=== PATIENT | female | born 1955 | race Caucasian/White ===

== ENCOUNTER 2017-07-20 19:48 | Emergency (ER) | payer OTHER ==
[2017-07-20 20:15] VITALS: TEMP 97.9; BMI 38.4
--- NOTE | 2017-07-20 20:16 | PDOC ---
Rapid Medical Evaluation Chief Complaint: Blood Pressure Problem Time Seen by Provider: 07/20/17 20:13 Medical Evaluation: Allergies Allergy/AdvReac Type Severity Reaction Status Date / Time No Known Allergies Allergy Verified 07/20/17 20:12 07/20/17 20:13 I have performed a brief in-person evaluation of this patient. The patient presents with a chief complaint of: Hypertension Pertinent physical exam findings: B/P 202/89 I have ordered the following: cbc, cmp, trop, tsh, ekg, chest x-ray, ua, urine c &s. The patient will proceed to the ED for further evaluation
[2017-07-20 21:01] LABS: BASOPHIL 0.6 % (0-2.0); MCH 28.4 pg (25.7-33.7); MCHC 33.6 g/dl (32.0-36.0); MEAN CELL VOLUME 84.7 fl (80-96); MEAN PLT VOLUME 8.9 fl (7.5-11.1); NEUTROPHILS 46.8 % (42.8-82.8); PLATELET COUNT 172 K/MM3 (134-434); RDW 14.6 % (11.6-15.6); WHITE BLOOD COUNT 4.5 K/mm3 (4.0-10.0)
[2017-07-20 21:02] LABS: URINE APPEARANCE CLEAR; URINE BILIRUBIN NEGATIVE (NEGATIVE); URINE BLOOD NEGATIVE (NEGATIVE); URINE COLOR STRAW; URINE GLUCOSE (UA) NEGATIVE (NEGATIVE); URINE KETONE NEGATIVE (NEGATIVE); URINE NITRITE NEGATIVE (NEGATIVE); URINE PROTEIN 2+ (NEGATIVE); URINE UROBILINOGEN NEGATIVE mg/dL (0.2-1.0)
[2017-07-20 21:03] LABS: URINE BACTERIA RARE /hpf (NONE SEEN); URINE RBC 1 /hpf (0-3); URINE WBC 2 /hpf (3-5)
[2017-07-20 21:27] LABS: ALBUMIN 3.6 g/dl (3.4-5.0); ANION GAP 8 (8-16); BILIRUBIN,TOTAL 0.2 mg/dL (0.2-1.0); CALCIUM 8.6 mg/dL (8.5-10.1); CO2 25 mmol/L (21-32); GLUCOSE,RANDOM 72 mg/dL (74-106); SGOT/AST 19 U/L (15-37); SGPT/ALT 35 U/L (12-78); TOT PROT 7.4 g/dl (6.4-8.2)
[2017-07-20 21:35] LABS: ALK PHOS 110 U/L (45-117); CPK 84 IU/L (26-192); THYROID STIMULATING HORMONE 1.35 uIU/ml (0.358-3.74); TROPONIN I 0.04 ng/ml (0.00-0.05)
--- NOTE | 2017-07-20 21:44 | PDOC ---
History of Present Illness - History of Present Illness Initial Comments: 07/20/17 23:14 Patient is a 62 year old female with a significant past medical history who presents to the ED with complaints of elevated Blood pressure that began today. As per patient's family, patient has been experiencing dizziness and nausea stating it is because of her high blood pressure. Family states patient has been experiencing low blood sugar secondary to high blood pressure. Patient family states patient has been compliant with all medications today but states she has not eaten or drunk anything all day. Family states patient underwent laser eye surgery earlier today. Patient family feels that patients lowered blood sugar is due to her elevated BP. Patient states she has not followed up with PCP for personal reasons . Patient finger stick currently 64. Denies chest pain, SOB. Denies fever, chills. Denies contact with sick individuals, Out of state travel. Denies any other symptoms. Allergies: None Social history: Lives with family. Denies Surgical history: Laser eye surgery PMD: None <Phil Reyes - Last Filed: 07/20/17 23:14> - General History Source: Patient <Lex Rivera - Last Filed: 07/21/17 06:37> - General Chief Complaint: Blood Pressure Problem Stated Complaint: BLOOD PRESSURE Time Seen by Provider: 07/20/17 21:36 Past History <Phil Reyes - Last Filed: 07/20/17 23:14> - Past Medical History COPD: No Diabetes: Yes HTN: Yes Hypercholesterolemia: Yes - Suicide/Smoking/Psychosocial Hx Smoking History: Never smoked Have you smoked in the past 12 months: No Information on smoking cessation initiated: No Hx Alcohol Use: No Drug/Substance Use Hx: No Substance Use Type: None <Lex Rivera - Last Filed: 07/21/17 06:37> - Past Medical History Allergies/Adverse Reactions: Allergies Allergy/AdvReac Type Severity Reaction Status Date / Time No Known Allergies Allergy Verified 07/20/17 20:12 Home Medications: Ambulatory Orders Aspirin [ASA -] 81 mg PO DAILY 07/20/17 Atenolol [Tenormin -] 50 mg PO DAILY 07/20/17 Furosemide [Lasix -] 40 mg PO DAILY 07/20/17 Insulin (Novolog) [Novolog Flexpen -] 07/20/17 Insulin Glargine,Hum.rec.anlog [Rosa Gordon PEN -] 07/20/17 Motrin - 200 mg PO PRN 07/20/17 Simvastatin 40 mg PO HS 07/20/17 Review of Systems - Review of Systems Able to Perform ROS?: Yes Comments:: 07/20/17 23:14 CONSTITUTIONAL: Absent: fever, no chills, no fatigue EYES: Absent: visual changes ENT: Absent: ear pain, no sore throat CARDIOVASCULAR: Absent: chest pain, no palpitations RESPIRATORY: Absent: cough, no SOB GI: +Nausea. Absent: abdominal pain, no vomiting, no constipation, no diarrhea GENITOURINARY: Absent: dysuria, no frequency, no hematuria MUSCULOSKELETAL: Absent: back pain, no arthralgia, no myalgia NEUROLOGIC: +Dizziness. SKIN: Absent: rash All Other Systems: Reviewed and Negative <Phil Reyes - Last Filed: 07/20/17 23:14> *Physical Exam - Vital Signs Last Vital Signs Temp Pulse Resp BP Pulse Ox 97.9 F 68 20 202/89 100 07/20/17 20:12 07/20/17 20:12 07/20/17 20:12 07/20/17 20:12 07/20/17 20:12 - Physical Exam Comments: 07/20/17 23:14 GENERAL: Well-appearing, well-nourished. No apparent distress. HEENT: Normocephalic, atraumatic. PERRL, EOM intact. CARDIOVASCULAR: Normal S1, S2. Regular rate and rhythm. PULMONARY: Clear to auscultation bilaterally. ABDOMEN: Soft, non-distended, non-tender. EXTREMITIES: Normal ROM in all four extremities. No gross deformities. SKIN: Warm, dry. No rash NEUROLOGICAL: No focal neurological deficits. <Phil Reyes - Last Filed: 07/20/17 23:14> - Vital Signs Last Vital Signs Temp Pulse Resp BP Pulse Ox 97.9 F 68 20 202/89 100 07/20/17 20:12 07/20/17 20:12 07/20/17 20:12 07/20/17 20:12 07/20/17 20:12 <Lex Rivera - Last Filed: 07/21/17 06:37> ED Treatment Course - LABORATORY CBC & Chemistry Diagram: 07/20/17 20:50 07/20/17 20:50 - ADDITIONAL ORDERS Additional order review: Laboratory Results 07/20/17 07/20/17 20:50 20:40 Sodium 139 Potassium 3.9 Chloride 106 Carbon Dioxide 25 Anion Gap 8 BUN 20 H Creatinine 1.0 Creat Clearance w eGFR 56.00 Random Glucose 72 L Calcium 8.6 Total Bilirubin 0.2 AST 19 ALT 35 Alkaline Phosphatase 110 Creatine Kinase 84 Troponin I 0.04 Total Protein 7.4 Albumin 3.6 TSH 1.35 Urine Color Straw Urine Appearance Clear Urine pH 6.0 Ur Specific [place] 1.004 Urine Protein 2+ H Urine Glucose (UA) Negative Urine Ketones Negative Urine Blood Negative Urine Nitrite Negative Urine Bilirubin Negative Urine Urobilinogen Negative Urine WBC (Auto) 2 Urine RBC (Auto) 1 Ur Epithelial Cells Rare Urine Bacteria Rare 07/20/17 20:50 RBC 3.80 MCV 84.7 MCHC 33.6 RDW 14.6 MPV 8.9 Neutrophils % 46.8 Lymphocytes % 42.2 H Monocytes % 9.4 Eosinophils % 1.0 Basophils % 0.6 <Phil Reyes - Last Filed: 07/20/17 23:14> - LABORATORY CBC & Chemistry Diagram: 07/20/17 20:50 07/20/17 20:50 - ADDITIONAL ORDERS Additional order review: Laboratory Results 07/20/17 20:40 Urine Color Straw Urine Appearance Clear Urine pH 6.0 Ur Specific [place] 1.004 Urine Protein 2+ H Urine Glucose (UA) Negative Urine Ketones Negative Urine Blood Negative Urine Nitrite Negative Urine Bilirubin Negative Urine Urobilinogen Negative Urine WBC (Auto) 2 Urine RBC (Auto) 1 Ur Epithelial Cells Rare Urine Bacteria Rare 07/20/17 20:50 RBC 3.80 MCV 84.7 MCHC 33.6 RDW 14.6 MPV 8.9 Neutrophils % 46.8 Lymphocytes % 42.2 H Monocytes % 9.4 Eosinophils % 1.0 Basophils % 0.6 <Lex Rivera - Last Filed: 07/21/17 06:37> Medical Decision Making - Medical Decision Making 07/21/17 01:46 blood glucose 246 after a liter for D5 1/2NS. BP is now 07/21/17 06:35 Dr. Rivera: The scribe's documentation has been prepared under my direction and personally reviewed by me in its entirery. I confirm that the note above accurately reflects all work, treatment, procedures, and medical decision making performed by me. glucose is now in the 300's pt will check sugar frequently and control the sugar with the insulin for 24 hours. Orals will be used starting Tuesday morning.. <Lex Rivera - Last Filed: 07/21/17 06:37> *DC/Admit/Observation/Transfer - Attestations Scribe Attestion: 07/20/17 23:15 Documentation prepared by Phil Reyes, acting as general medical practitioner for Lex Rivera MD/DO. <Phil Reyes - Last Filed: 07/20/17 23:14> - Discharge Dispostion Admit: No <Lex Rivera - Last Filed: 07/21/17 06:37> Diagnosis at time of Disposition: Hypoglycemia Diabetes Qualifiers: Diabetes mellitus type: type 1 - Discharge Dispostion Disposition: HOME Condition at time of disposition: Stable - Referrals Referrals: Kyle Loyd MD [Staff Physician] - Korin Farah MD [Staff Physician] - - Patient Instructions Printed Discharge Instructions: DI for Hypoglycemia Additional Instructions: Please don't any other oral medications for diabetes you usually take for 24 hours. Check sugar frequently and us insulin for those 24 hours. Start the oral medication on Tuesday morning. Return if any problems. Print Language: SPANISH
[2017-07-20] MEDS ORDERED: DEXTROSE 5%-0.45% SALINE 1,000 ML IV SCH (22:00)
[2017-07-21] MEDS ORDERED: HEMOQUE TEST 1 EACH EACH ONE (01:24)
[2017-07-21 03:12] VITALS: PULSE 68
[2017-07-21] MEDS ORDERED: DEXTROSE 5%-0.45% SALINE 1,000 ML IV SCH (04:30)
[2017-07-21 06:55] VITALS: BP 187/77
[2017-07-21 13:19] LABS: URINE LEUK ESTERASE TRACE (NEGATIVE)
== END 2017-07-21 06:55 | disposition home or self-care (01) ==
LOC: JER 19:48
DX: E11.649 Type 2 diabetes mellitus with hypoglycemia without coma (principal); Z79.4 Long term (current) use of insulin; I10 Essential (primary) hypertension; E78.00 Pure hypercholesterolemia, unspecified
CPT/HCPCS: 36415; 80053; 81003; 81015; 82550; 84443; 84484; 85025; 87086; 99281-25

== ENCOUNTER 2018-07-30 20:59 | Emergency (ER) | payer OTHER ==
[2018-07-30 21:03] VITALS: BMI 34.7
--- NOTE | 2018-07-30 21:16 | PDOC ---
History of Present Illness - General Chief Complaint: Blood Pressure Problem Stated Complaint: HIGH BLOOD PRESSURE Time Seen by Provider: 07/30/18 21:16 History Source: Patient, Family Exam Limitations: Language Barrier - History of Present Illness Initial Comments: 07/30/18 21:28 CC: "my blood pressure is high" 63 year old female with PMH HTN, DM, HLD presented to ED for HTN x3 days. Pt stated she has been taking her blood pressure medications as prescribed, but her blood pressure has been fluctuant between 190-200 systolic. She did not mention this to her sons until tonight. She admitted to headache. She denied chest pain, shortness of breath, lower extremity swelling, hematuria, blurry vision, dizziness, weakness, numbness. BP medications: Valsartan 160 mg daily HCTZ 12.5 mg daily Atenolol 50 mg daily Lasix 40 mg daily Past History - Past Medical History Allergies/Adverse Reactions: Allergies Allergy/AdvReac Type Severity Reaction Status Date / Time No Known Allergies Allergy Verified 07/30/18 21:03 Home Medications: Ambulatory Orders Aspirin [ASA -] 81 mg PO DAILY 07/20/17 Atenolol [Tenormin -] 50 mg PO DAILY 07/20/17 Furosemide [Lasix -] 40 mg PO DAILY 07/20/17 Simvastatin 40 mg PO HS 07/20/17 Ibuprofen [Advil -] 200 mg PO QID 07/30/18 Metformin HCl [Metformin HCl ER] 1,000 mg PO BID 07/30/18 Sitagliptin Phosphate [Januvia] 100 mg PO DAILY 07/30/18 Valsartan/Hydrochlorothiazide [Valsartan-Hctz 160-25 mg Tab] 1 each PO DAILY 05/09 COPD: No Diabetes: Yes HTN: Yes Hypercholesterolemia: Yes - Suicide/Smoking/Psychosocial Hx Smoking History: Never smoked Have you smoked in the past 12 months: No Information on smoking cessation initiated: No Hx Alcohol Use: No Drug/Substance Use Hx: No Substance Use Type: None Review of Systems - Review of Systems Able to Perform ROS?: Yes Comments:: 07/30/18 21:30 General: denied fever, chills, night sweats, generalized weakness. HEENT: denied sore throat, rhinorrhea, ear pain. Heart: denied chest pain, palpitations, syncope, lower extremity swelling, diaphoresis. Respiratory: denied shortness of breath, cough, sputum production, hemoptysis. Abdomen: denied abdominal pain, nausea, vomiting, diarrhea, constipation, blood in stool. : denied dysuria, increased urinary frequency, hematuria, urinary incontinence , flank pain. Back: denied back pain. Musculoskeletal: denied joint pain, muscle pain, joint swelling. Neurological: admitted to headache. denied dizziness, numbness, tingling, weakness. Skin: denied rash, laceration, abrasion. *Physical Exam - Vital Signs Last Vital Signs Temp Pulse Resp BP Pulse Ox 98.0 F 82 16 223/78 H 100 07/30/18 21:01 07/30/18 21:01 07/30/18 21:01 07/30/18 21:01 07/30/18 21:01 - Physical Exam Comments: 07/30/18 21:31 Constitutional: Well-nourished, Well-developed, appearing stated age. HEENT: head is normocephalic, atraumatic. EOMI. PERRLA. Neck: supple. Full ROM. Heart: regular rhythm. no murmurs, rubs or gallops. Lungs: clear to auscultation bilaterally. no crackles, rhonchi or wheezing. no stridor. Abdomen: soft, nontender. normal bowel sounds. no rebound, guarding, masses. Extremities: Peripheral pulses intact. No lower extremity edema. Neurological: Alert. Oriented x3. CN2-12 intact. 5/5 strength all extremities. Full sensation all extremities and bilateral face. Finger to nose normal. Psych: awake, alert, oriented x3. Follows commands. Answers questions appropriately. Moderate Sedation - Procedure Monitoring Vital Signs: Procedure Monitoring Vital Signs Temperature 98.0 F 07/30/18 21:01 Pulse Rate 82 07/30/18 21:01 Respiratory Rate 16 07/30/18 21:01 Blood Pressure 223/78 H 07/30/18 21:01 O2 Sat by Pulse Oximetry (%) 100 07/30/18 21:01 ED Treatment Course - LABORATORY CBC & Chemistry Diagram: 07/30/18 23:00 07/30/18 23:00 Medical Decision Making - Medical Decision Making 07/30/18 21:31 63 year old female with above PMH presented to ED for HTNx3 days associated with headache. Initial Vital Signs Temp Pulse Resp BP Pulse Ox 98.0 F 82 16 223/78 H 100 07/30/18 21:01 07/30/18 21:01 07/30/18 21:01 07/30/18 21:01 07/30/18 21:01 Afebrile. No tachycardia. No tachypnea. Hypertensive urgency. No hypoxia on room air. Labs ordered: CBC, CMP, cardiac enzymes, BNP, UA Imaging ordered: CXR, CT head Medications ordered: Tylenol 975 mg PO, Norvasc 5 mg EKG performed at 2156: rate 84, regular rhythm, left axis, normal intervals, QTc = 456, no acute ST changes. 07/30/18 22:33 Labs hemolyzed per RN January. Reordered. Pt in CT. 07/30/18 23:02 CT head report: no acute infarction. no hemorrhage. no mass lesion. no skull fracture. likely incidental coarse calcification is noted posteriorly near the posterior inferior aspect of the falx of questionable significance. CXR: no infiltrate. sharp costophrenic angle bilaterally. no pneumothorax. cardiomegaly. - Pending official read 07/30/18 23:07 CMP Sodium 137 mmol/L (136-145) 07/30/18 21:58 Potassium 4.1 mmol/L (3.5-5.1) 07/30/18 21:58 Chloride 100 mmol/L (98-107) 07/30/18 21:58 Carbon Dioxide 26 mmol/L (21-32) 07/30/18 21:58 Anion Gap 11 MMOL/L (8-16) 07/30/18 21:58 BUN 31 mg/dL (7-18) H 07/30/18 21:58 Creatinine 1.2 mg/dL (0.55-1.3) 07/30/18 21:58 Creat Clearance w eGFR 45.23 (>60) 07/30/18 21:58 Random Glucose 168 mg/dL (74-106) H 07/30/18 21:58 Calcium 8.8 mg/dL (8.5-10.1) 07/30/18 21:58 Magnesium 1.8 mg/dL (1.8-2.4) 07/30/18 21:58 Total Bilirubin 0.2 mg/dL (0.2-1) 07/30/18 21:58 AST 22 U/L (15-37) 07/30/18 21:58 ALT 26 U/L (13-61) 07/30/18 21:58 Alkaline Phosphatase 136 U/L (45-117) H 07/30/18 21:58 Creatine Kinase 99 IU/L (26-192) 07/30/18 21:58 Troponin I 0.02 ng/ml (0.00-0.05) 07/30/18 21:58 B-Natriuretic Peptide 158.84 pg/ml (5-125) H 07/30/18 21:58 Total Protein 7.6 g/dl (6.4-8.2) 07/30/18 21:58 Albumin 3.6 g/dl (3.4-5.0) 07/30/18 21:58 No electrolyte abnormalities. No HERMELINDA. BUN/Cr = 25 Cr 1.2, at baseline - Cr 1.0 07/20/17 ALP 136. 07/30/18 23:19 Pt now reported low back pain x1 year located to her coccyx. Pt and sons denied fall/injury. No point tenderness, rash or ulcer on examination. Family stated pt had XR performed within the year that was normal. No indication for imaging at this time. 07/30/18 23:42 Vital Signs Temperature 98.5 F 07/30/18 23:36 Pulse Rate 75 07/30/18 23:36 Respiratory Rate 16 07/30/18 21:01 Blood Pressure 191/87 H 07/30/18 23:36 O2 Sat by Pulse Oximetry (%) 99 07/30/18 23:36 BP mildly improved. HCTZ 12.5 ordered. CBC WBC 4.4 K/mm3 (4.0-10.0) 07/30/18 23:00 Corrected WBC (auto) Cancelled 07/30/18 21:58 RBC 3.36 M/mm3 (3.60-5.2) L 07/30/18 23:00 Hgb 9.9 GM/dL (10.7-15.3) L 07/30/18 23:00 Hct 28.3 % (32.4-45.2) L 07/30/18 23:00 MCV 84.4 fl (80-96) 07/30/18 23:00 MCH 29.5 pg (25.7-33.7) 07/30/18 23:00 MCHC 35.0 g/dl (32.0-36.0) 07/30/18 23:00 RDW 14.5 % (11.6-15.6) 07/30/18 23:00 Plt Count 188 K/MM3 (134-434) 07/30/18 23:00 MPV 8.8 fl (7.5-11.1) 07/30/18 23:00 Absolute Neuts (auto) 2.6 K/mm3 (1.5-8.0) 07/30/18 23:00 Neutrophils % 59.6 % (42.8-82.8) D 07/30/18 23:00 Lymphocytes % 30.1 % (8-40) D 07/30/18 23:00 Monocytes % 8.9 % (3.8-10.2) 07/30/18 23:00 Eosinophils % 0.9 % (0-4.5) 07/30/18 23:00 Basophils % 0.5 % (0-2.0) 07/30/18 23:00 Nucleated RBC % 0 % (0-0) 07/30/18 23:00 Platelet Estimate Cancelled 07/30/18 21:58 Platelet Comment Cancelled 07/30/18 21:58 Normocytic anemia. No leukocytosis. Urine Test Results Urine Color Colorless 07/30/18 22:05 Urine Appearance Clear 07/30/18 22:05 Urine pH 6.0 (5.0-8.0) 07/30/18 22:05 Ur Specific [place] 1.005 (1.010-1.035) L 07/30/18 22:05 Urine Protein 2+ (NEGATIVE) H 07/30/18 22:05 Urine Glucose (UA) Negative (NEGATIVE) 07/30/18 22:05 Urine Ketones Negative (NEGATIVE) 07/30/18 22:05 Urine Blood Negative (NEGATIVE) 07/30/18 22:05 Urine Nitrite Negative (NEGATIVE) 07/30/18 22:05 Urine Bilirubin Negative (<2.0 mg/dL) 07/30/18 22:05 Ur Leukocyte Esterase Trace (NEGATIVE) 07/30/18 22:05 Ur Epithelial Cells Rare /HPF (FEW) 07/30/18 22:05 Urine Bacteria Rare /hpf (NONE SEEN) 07/30/18 22:05 Protein in urine. - Similar to 07/20/17 Cr at baseline. Trace LE, WBC not >5. 07/30/18 23:45 Pt reassessed, stated headache improved from 02/28 to 08/31. Pt stated she only checks her blood pressure when she believes it is high, based on her symptoms like headache. Family at bedside stated they believe she lives in the 160s systolic range. At this time pt is believed to be safe for discharge. -Headache decreased -Negative CT head -BP trending down. -No gross focal neuro deficits. No chest pain. -Pt to be discharged home with family. -Pt and family informed of need for prompt PCP follow up by Tuesday or Tuesday for evaluation of BP medications. *DC/Admit/Observation/Transfer Diagnosis at time of Disposition: Hypertension - Discharge Dispostion Disposition: HOME Condition at time of disposition: Improved Decision to Admit order: No - Referrals Referrals: Vielka Evans [Primary Care Provider] - - Patient Instructions Printed Discharge Instructions: DI for High Blood Pressure, How to Monitor Your Blood Pressure at Home Additional Instructions: Follow up with your primary care doctor in 1-2 days. Your blood pressure medications may need to be altered. Your care is not complete until you follow up. Take you blood pressure morning and night, and write the values in a diary so that your doctor can see your blood pressure over time. Take Tylenol over the counter for your headache, take as advised on label. Return to the Emergency Department for increasing pain, chest pain, shortness of breath, blood in urine, dizziness like the room is spinning, altered mental status, facial drooping, weakness, decreased strength from one arm to another or one leg to another, or any other new, worsening or concerning symptoms. - Post Discharge Activity
[2018-07-30] MEDS ORDERED: ACETAMINOPHEN 325 MG TABLET (FP) PO ONE (21:34)
[2018-07-30] MEDS ORDERED: amLODIPine BESYLATE 5 MG TABLET (FP) PO ONE (21:39)
--- NOTE | 2018-07-30 21:42 | PDOC ---
Attending Attestation - HPI HPI: This patient is a 63 year old female with PMHx of HTN, DM, HLD, and presents with elevated blood pressure and headache for 3 days. She states that she has been taking her blood pressure medications (Valsartan, HCTZ, Atenolol) as prescribed but her blood pressure has remained 190-200 systolic. She also endorses frontal headache but denies taking anything for it other that her regular bp meds. She denies chest pain, shortness of breath, lower extremity swelling, hematuria , blurry vision, dizziness, weakness, numbness. 07/30/18 21:54 <Alejandrina Lawler - Last Filed: 07/30/18 21:54> - Resident Resident Name: Brenda Ruiz - ED Attending Attestation I have performed the following: I have examined & evaluated the patient, The case was reviewed & discussed with the resident, I agree w/resident's findings & plan, Exceptions are as noted - HPI HPI: 07/30/18 21:40 63-year-old female with a history of diabetes and hypertension, presents because she's had a frontal headache for 3 days. - Physicial Exam PE: 07/30/18 21:42 alert,conversant 63 yo female presents with frontal headache for 3 days. She has only taken one 200mg motrin tablet for her headache. No chest pain,no nausea ,no vomiting,no visual changes 07/30/18 21:49 head ncat eyes francisco javier eomi neck no bruits,supple lungs cta b/l cvs [id number] abd soft,nontender ext no deformities skin warm and dry neuro axox3,ambulatory psych appropriate - Medical Decision Making 07/30/18 21:52 pt has diabetes and HTN and takes several HTn meds,lasix and diabetes meds -frontal headache x 3 days with no chest pain,visual chgs,nausea or vomiting, no ataxia diff diag includes hypertenisive urgency,migraine headache,subdural bleed, hyperglycemia,dka -pt states that she has taken all her medications 07/30/18 21:56 Reviewing her previous BP shows 186/71, 160/66,187/77, 202,89 pt states she takes her BP ONLY if she gets a headache so she is not sure what her typical BP is 07/30/18 21:58 07/30/18 22:27 ekg is NSR @ 84bpm,normal QTc,no evidence of ischemia ct scan head no acute intracranial pathology,no fracture,no masses,no midline shift mild anemia noted on previous cbc ,normal platelets chemistries reviewed,neg trop,normal electrolytes glucose 229 07/30/18 23:34 07/30/18 23:52 blood pressure came down, headache improved . Pt lives with family and she was discharged home 07/31/18 01:04 imp poorly controlled HTN 07/31/18 01:06 <Sejal Matias - Last Filed: 07/31/18 01:06>
[2018-07-30] MEDS ORDERED: ACETAMINOPHEN 325 MG TABLET (FP) ONE (22:01)
[2018-07-30] MEDS ORDERED: amLODIPine BESYLATE 5 MG TABLET (FP) ONE (22:01)
[2018-07-30 22:20] LABS: URINE APPEARANCE CLEAR; URINE BILIRUBIN NEGATIVE (<2.0 mg/dL); URINE COLOR COLORLESS; URINE GLUCOSE (UA) NEGATIVE (NEGATIVE); URINE KETONE NEGATIVE (NEGATIVE); URINE LEUK ESTERASE TRACE (NEGATIVE); URINE NITRITE NEGATIVE (NEGATIVE); URINE PROTEIN 2+ (NEGATIVE); URINE UROBILINOGEN NEGATIVE mg/dL (0.2-1.0)
[2018-07-30 22:25] LABS: EPI CELLS RARE /HPF (FEW); URINE BACTERIA RARE /hpf (NONE SEEN)
[2018-07-30 22:31] LABS: INR 0.82 (0.83-1.09)
[2018-07-30 23:02] LABS: CREATININE 1.2 mg/dL (0.55-1.3)
[2018-07-30 23:03] LABS: ALBUMIN 3.6 g/dl (3.4-5.0); CO2 26 mmol/L (21-32)
[2018-07-30] MEDS ORDERED: SODIUM CHLORIDE 1,000 ML IV STA (23:09)
[2018-07-30 23:12] LABS: BASO % 0.5 % (0-2.0); EOS % 0.9 % (0-4.5); HEMATOCRIT 28.3 % (32.4-45.2); HEMOGLOBIN 9.9 GM/dL (10.7-15.3); LYMPH % 30.1 % (8-40); MCH 29.5 pg (25.7-33.7); MEAN CELL VOLUME 84.4 fl (80-96); MEAN PLT VOLUME 8.8 fl (7.5-11.1); MONO % 8.9 % (3.8-10.2); NEUT % 59.6 % (42.8-82.8); PLATELET COUNT 188 K/MM3 (134-434); RBC 3.36 M/mm3 (3.60-5.2); RDW 14.5 % (11.6-15.6); WHITE BLOOD COUNT 4.4 K/mm3 (4.0-10.0)
[2018-07-30 23:30] LABS: INR 0.89 (0.83-1.09); PROTHROMBIN TIME (PATIENT) 10.5 SEC (9.7-13.0)
[2018-07-30 23:33] LABS: ACTIVATED PTT 28.4 SECONDS (25.2-36.5)
[2018-07-30 23:37] VITALS: BP 191/87; PULSE 75; TEMP 98.5
[2018-07-30 23:45] LABS: ALBUMIN 3.4 g/dl (3.4-5.0); ALK PHOS 128 U/L (45-117); ANION GAP 9 MMOL/L (8-16); BILIRUBIN,TOTAL 0.1 mg/dL (0.2-1); BLOOD UREA NITROGEN 31 mg/dL (7-18); CALCIUM 8.6 mg/dL (8.5-10.1); CHLORIDE 102 mmol/L (98-107); CO2 26 mmol/L (21-32); CREATININE 1.2 mg/dL (0.55-1.3); GLUCOSE,RANDOM 229 mg/dL (74-106); N-TERMINAL BNP 159.9 pg/ml (5-125); POTASSIUM 4.6 mmol/L (3.5-5.1); SGOT/AST 14 U/L (15-37); SGPT/ALT 24 U/L (13-61); SODIUM 137 mmol/L (136-145); TOT PROT 7.1 g/dl (6.4-8.2)
[2018-07-30] MEDS ORDERED: HYDROCHLOROTHIAZIDE 12.5 MG CAPSULE (FP) PO ONE (23:45)
[2018-07-30] MEDS ORDERED: HYDROCHLOROTHIAZIDE 25 MG TABLET (FP) ONE (23:45)
[2018-07-31 01:11] LABS: ALK PHOS 136 U/L (45-117); ANION GAP 11 MMOL/L (8-16); BILIRUBIN,TOTAL 0.2 mg/dL (0.2-1); BLOOD UREA NITROGEN 31 mg/dL (7-18); CALCIUM 8.8 mg/dL (8.5-10.1); CHLORIDE 100 mmol/L (98-107); GLUCOSE,RANDOM 168 mg/dL (74-106); MAGNESIUM 1.8 mg/dL (1.8-2.4); N-TERMINAL BNP 158.8 pg/ml (5-125); POTASSIUM 4.1 mmol/L (3.5-5.1); SGOT/AST 22 U/L (15-37); SGPT/ALT 26 U/L (13-61); SODIUM 137 mmol/L (136-145); TOT PROT 7.6 g/dl (6.4-8.2)
--- NOTE | 2018-07-31 15:19 | EKG ---
Test Reason : Blood Pressure : / mmHG Vent. Rate : 084 BPM Atrial Rate : 084 BPM P-R Int : 154 ms QRS Dur : 088 ms QT Int : 386 ms P-R-T Axes : 050 -27 023 degrees QTc Int : 456 ms NORMAL SINUS RHYTHM NORMAL ECG NO PREVIOUS ECGS AVAILABLE Confirmed by THONG LOWRY MD ([id number]) on 07/31/2018 3:18:47 PM Referred By: Confirmed By:THONG LOWRY MD
== END 2018-07-30 23:59 | disposition home or self-care (01) ==
LOC: JER 20:59
DX: I10 Essential (primary) hypertension (principal); E11.9 Type 2 diabetes mellitus without complications; E78.5 Hyperlipidemia, unspecified
CPT/HCPCS: 36415; 70450-TC; 71046-TC-FY; 80053; 81003; 81015; 82550; 83735; 83880; 84484; 85025; 85610; 85730; 86850; 86900; 86901; 87086; 93005; 93010; 99282-25

== ENCOUNTER 2018-10-19 10:10 | Emergency (ER) | payer OTHER ==
[2018-10-19 10:18] VITALS: TEMP 97.4; BMI 34.7
--- NOTE | 2018-10-19 10:25 | PDOC ---
History of Present Illness - General Chief Complaint: Edema Stated Complaint: RT FOOT SWOLLEN Time Seen by Provider: 10/19/18 10:24 History Source: Patient Exam Limitations: No Limitations - History of Present Illness Initial Comments: 10/19/18 10:38 Patient is a 63-year-old female with past medical history of hypertension, diabetes, hyperlipidemia, who presents to the emergency department today with right foot pain and swelling. She wishes to have her daughter acts as an speech language pathologist prn. Patient states that she noticed the swelling and pain began approximately 1 week ago. She denies any trauma to the foot. She states that it hurts to walk. Denies fevers, chills, shortness of breath, dyspnea on exertion, chest pain, palpitations, nausea, vomiting and diarrhea. Past History - Travel Traveled outside of the country in the last 30 days: No Close contact w/someone who was outside of country & ill: No - Past Medical History Allergies/Adverse Reactions: Allergies Allergy/AdvReac Type Severity Reaction Status Date / Time No Known Allergies Allergy Verified 07/30/18 21:03 Home Medications: Ambulatory Orders Aspirin [ASA -] 81 mg PO DAILY 07/20/17 Atenolol [Tenormin -] 50 mg PO DAILY 07/20/17 Sitagliptin Phosphate [Januvia] 100 mg PO DAILY 07/30/18 Valsartan/Hydrochlorothiazide [Valsartan-Hctz 160-25 mg Tab] 1 each PO DAILY 05/09 metFORMIN HCL [Metformin HCl ER] 1,000 mg PO BID 07/30/18 Atorvastatin Calcium 40 mg PO HS 10/19/18 Ferrous Sulfate [Feosol] 325 mg PO ASDIR 10/19/18 COPD: No Diabetes: Yes HTN: Yes Hypercholesterolemia: Yes - Suicide/Smoking/Psychosocial Hx Smoking History: Never smoked Have you smoked in the past 12 months: No Hx Alcohol Use: No Drug/Substance Use Hx: No Substance Use Type: None Review of Systems - Review of Systems Able to Perform ROS?: Yes Comments:: 10/19/18 10:25 CONSTITUTIONAL: Absent: fever, chills, diaphoresis, generalized weakness, malaise, loss of appetite HEENT: Absent: rhinorrhea, nasal congestion, throat pain, throat swelling, difficulty swallowing, mouth swelling, ear pain, eye pain, visual Changes CARDIOVASCULAR: Absent: chest pain, loss of consciousness, palpitations, irregular heart rate, peripheral edema RESPIRATORY: Absent: cough, shortness of breath, dyspnea with exertion, orthopnea, wheezing, stridor, hemoptysis GASTROINTESTINAL: Absent: abdominal pain, abdominal distension, nausea, vomiting, diarrhea, constipation, melena, hematochezia GENITOURINARY: Absent: dysuria, frequency, urgency, hesitancy, hematuria, flank pain, genital pain MUSCULOSKELETAL: Present: R foot pain and swelling Absent: myalgia SKIN: Absent: rash, itching, pallor HEMATOLOGIC/IMMUNOLOGIC: Absent: easy bleeding, easy bruising, lymphadenopathy, frequent infections ENDOCRINE: Absent: unexplained weight gain, unexplained weight loss, heat intolerance, cold intolerance NEUROLOGIC: Absent: headache, focal weakness or paresthesias, dizziness, unsteady gait, seizure, mental status changes, bladder or bowel incontinence PSYCHIATRIC: Absent: anxiety, depression, suicidal or homicidal ideation, hallucinations. Is the patient limited Swazi proficient: No *Physical Exam - Vital Signs Last Vital Signs Temp Pulse Resp BP Pulse Ox 97.4 F L 82 18 150/100 100 10/19/18 10:10 10/19/18 10:10 10/19/18 10:10 10/19/18 10:10 10/19/18 10:10 - Physical Exam Comments: 10/19/18 10:25 GENERAL: Well developed, well nourished. Awake and alert. No acute distress. HEENT: Normocephalic, atraumatic. PERRLA, EOMI. No conjunctival pallor. Sclera are non- icteric. Moist mucous membranes. Oropharynx is clear. NECK: Supple. Full ROM. No JVD. Carotid pulses 2+ and symmetric, without bruits. No thyromegaly. No lymphadenopathy. CARDIOVASCULAR: Regular rate and rhythm. No murmurs, rubs, or gallops. Distal pulses are 2+ and symmetric. PULMONARY: No evidence of respiratory distress. Lungs clear to auscultation bilaterally. No wheezing, rales or rhonchi. ABDOMINAL: Soft. Non-tender. Non-distended. No rebound or guarding. No organomegaly. Normoactive bowel sounds. MUSCULOSKELETAL TTP of the 3rd metatarsal with associated swelling to the top of foot. Normal range of motion at all joints. No bony deformities. No CVA tenderness. EXTREMITIES: No cyanosis. No clubbing. No edema. No calf tenderness. SKIN: Warm and dry. Normal capillary refill. No rashes. No jaundice. NEUROLOGICAL: Alert, awake, appropriate. Cranial nerves 2-12 intact. No deficits to light touch and temperature in face, upper extremities and lower extremities. No motor deficits in the in face, upper extremities and lower extremities. Normoreflexic in the upper and lower extremities. Normal speech. Toes are down- going bilaterally. Gait is normal without ataxia. PSYCHIATRIC: Cooperative. Good eye contact. Appropriate mood and affect. Moderate Sedation - Procedure Monitoring Vital Signs: Procedure Monitoring Vital Signs Temperature 97.4 F L 10/19/18 10:10 Pulse Rate 82 10/19/18 10:10 Respiratory Rate 18 10/19/18 10:10 Blood Pressure 150/100 10/19/18 10:10 O2 Sat by Pulse Oximetry (%) 100 10/19/18 10:10 ED Treatment Course - LABORATORY CBC & Chemistry Diagram: 10/19/18 11:00 10/19/18 11:00 Medical Decision Making - Medical Decision Making 10/19/18 13:22 Patient is a 62-year-old female past medical history hypertension, lipidemia, diabetes who presents to the ER with 1 week of right foot pain. On exam patient with tenderness palpation of the third metatarsal. Associated swelling. Calf is soft and nontender. Given past medical history, will obtain basic labs to evaluate glucose, and BNP. X-ray of the foot and duplex ultrasound obtained. Labs reveal no leukocytosis, sugar mildly elevated at 198. BNP mildly elevated at 138. Patient's pain relieved with Tylenol. X-ray and ultrasound are both show no acute pathology. Swelling possibly due to arthritis versus diabetic nephropathy Otherwise stable for discharge. Podiatry follow-up given. I discussed the physical exam findings, ancillary test results and final diagnoses with the patient. I answered all of the patient's questions. The patient was satisfied with the care received and felt comfortable with the discharge plan and treatment plan. The Patient agrees to follow up with the primary care physician/specialist within 24-72 hours. Return precautions were given. *DC/Admit/Observation/Transfer Diagnosis at time of Disposition: Right foot pain - Discharge Dispostion Disposition: HOME Condition at time of disposition: Stable Decision to Admit order: No - Referrals Referrals: Garry Hanna DPM [Staff Physician] - - Patient Instructions Printed Discharge Instructions: DI for Foot Pain Additional Instructions: You were evaluated for your foot pain today Your X-ray was normal and did not show any broken bones. Your ultrasound was negative for blood clots You may have some arthritis You may take Tylenol 650mg every 6 hours as needed for pain. Please follow up with podietry, a referral has been provided to you Return to the ED for worsening pain, if you are unable to walk, or if you have any changes in your symptoms. - Post Discharge Activity
[2018-10-19] MEDS ORDERED: ACETAMINOPHEN 325 MG TABLET (FP) PO ONE (10:35)
[2018-10-19] MEDS ORDERED: ACETAMINOPHEN 325 MG TABLET (FP) ONE (10:51)
--- NOTE | 2018-10-19 11:22 | PDOC ---
*Physical Exam - Vital Signs Last Vital Signs Temp Pulse Resp BP Pulse Ox 97.4 F L 82 18 150/100 100 10/19/18 10:10 10/19/18 10:10 10/19/18 10:10 10/19/18 10:10 10/19/18 10:10 ED Treatment Course - LABORATORY CBC & Chemistry Diagram: 10/19/18 11:00 10/19/18 11:00 - Medications Given in the ED: ED Medications Discontinued Medications Generic Name Dose Route Start Last Admin Trade Name Daryl PRN Reason Stop Dose Admin Acetaminophen 650 mg 10/19/18 10:35 10/19/18 10:54 Tylenol - PO 10/19/18 10:36 650 mg ONCE ONE Administration Medical Decision Making - Medical Decision Making 10/19/18 11:22 63 yo F presenting with foot swelling No fevers or chills No trauma Labs Duplex Re assess Pt seen by Midlevel Provider under my direct supervision Pt interviewed and examined Ancillary studies reviewed I agree with plan as outlined by Midlevel Provider 10/19/18 12:29 *DC/Admit/Observation/Transfer Diagnosis at time of Disposition: Right foot pain - Discharge Dispostion Disposition: HOME Condition at time of disposition: Stable - Referrals Referrals: Garry Hanna, [facility] [Staff Physician] - - Patient Instructions Printed Discharge Instructions: DI for Foot Pain Additional Instructions: You were evaluated for your foot pain today Your X-ray was normal and did not show any broken bones. Your ultrasound was negative for blood clots You may have some arthritis You may take Tylenol 650mg every 6 hours as needed for pain. Please follow up with podietry, a referral has been provided to you Return to the ED for worsening pain, if you are unable to walk, or if you have any changes in your symptoms. - Post Discharge Activity
[2018-10-19 11:25] LABS: BASO % 0.7 % (0-2.0); EOS % 1.2 % (0-4.5); HEMATOCRIT 29.9 % (32.4-45.2); HEMOGLOBIN 10.4 GM/dL (10.7-15.3); MCH 29.4 pg (25.7-33.7); MCHC 34.8 g/dl (32.0-36.0); MEAN CELL VOLUME 84.4 fl (80-96); MEAN PLT VOLUME 8.6 fl (7.5-11.1); MONO % 8.2 % (3.8-10.2); NEUT % 55.9 % (42.8-82.8); PLATELET COUNT 190 K/MM3 (134-434); RBC 3.54 M/mm3 (3.60-5.2); RDW 14.2 % (11.6-15.6); WHITE BLOOD COUNT 5.3 K/mm3 (4.0-10.0)
[2018-10-19 11:51] LABS: ALBUMIN 3.6 g/dl (3.4-5.0); ALK PHOS 120 U/L (45-117); ANION GAP 8 MMOL/L (8-16); BILIRUBIN,TOTAL 0.4 mg/dL (0.2-1); BLOOD UREA NITROGEN 28 mg/dL (7-18); CALCIUM 9.2 mg/dL (8.5-10.1); CHLORIDE 102 mmol/L (98-107); CO2 26 mmol/L (21-32); CREATININE 1.3 mg/dL (0.55-1.3); GLUCOSE,RANDOM 198 mg/dL (74-106); N-TERMINAL BNP 133.8 pg/ml (5-125); POTASSIUM 4.9 mmol/L (3.5-5.1); SGOT/AST 20 U/L (15-37); SGPT/ALT 27 U/L (13-61); SODIUM 136 mmol/L (136-145); TOT PROT 7.7 g/dl (6.4-8.2)
[2018-10-19 13:35] VITALS: BP 168/78; PULSE 68
== END 2018-10-19 13:38 | disposition home or self-care (01) ==
LOC: JER 10:10
DX: M79.671 Pain in right foot (principal); I10 Essential (primary) hypertension; E11.9 Type 2 diabetes mellitus without complications; Z79.84 Long term (current) use of oral hypoglycemic drugs; E78.5 Hyperlipidemia, unspecified; E78.00 Pure hypercholesterolemia, unspecified
CPT/HCPCS: 36415; 73630-TC-RT-FY; 80053; 83880; 85025; 93971-TC; 99282-25